=== PATIENT | female | born 1945 | race Caucasian/White ===

== ENCOUNTER → 2019-01-16 | Outpatient (CLI) | payer MEDICARE, OTHER | END | disposition home or self-care (01) | LOC: LAB SHORT 08:33 → PLD 08:33 | DX: D48.5 Neoplasm of uncertain behavior of skin (principal) | CPT/HCPCS: 88305 ==

== ENCOUNTER → 2019-02-06 | Outpatient (CLI) | payer MEDICARE, OTHER | END | disposition home or self-care (01) | LOC: LAB SHORT 09:55 → PLD 09:55 | DX: D48.5 Neoplasm of uncertain behavior of skin (principal) | CPT/HCPCS: 88305 ==

== ENCOUNTER 2020-12-19 10:39 | Observation (INO) | payer MEDICARE, OTHER ==
[~2020-12-19] VITALS: Ht 175.3 cm; Wt 52.6 kg
[2020-12-19] MEDS ORDERED: METOPROLOL SUCC25 MG PO (10:54)
[2020-12-19 11:29] LABS: BASOPHILS ABSOLUTE AUTO 0.01 K/mm3 (0.00-0.23); BASOPHILS PERCENT AUTO 0 % (0-2); EOSINOPHILS ABSOLUTE AUTO 0.04 K/mm3 (0.00-0.68); EOSINOPHILS PERCENT AUTO 1 % (0-6); Hematocrit 44.3 % (33.0-51.0); Hemoglobin 14.7 g/dL (11.5-16.0); IMMATURE GRAN ABSOLUTE AUTO 0.02 K/mm3 (0.00-0.10); IMMATURE GRAN PERCENT AUTO 0 % (0-1); LYMPHOCYTES PERCENT AUTO 9 % (21-46); MONOCYTES ABSOLUTE AUTO 0.38 K/mm3 (0.16-1.47); MONOCYTES PERCENT AUTO 6 % (4-13); Mean Corpuscular HGB 30.9 pg (26.0-34.0); Mean Corpuscular HGB Conc 33.2 g/dL (31.5-36.5); Mean Corpuscular Volume 93 fL (80-100); Mean Platelet Volume 9.8 fL (9.1-12.4); NEUTROPHILS ABSOLUTE AUTO 5.31 K/mm3 (1.96-9.15); NEUTROPHILS PERCENT AUTO 84 % (41-73); Platelet Count 197 K/mm3 (150-400); RDW Coefficient Variation 12.1 % (11.7-14.2); RDW Standard Deviation 41.4 fL (35.1-46.3); Red Blood Cell Count 4.76 M/mm3 (3.80-5.20); White Blood Cell Count 6.36 K/mm3 (4.00-11.30)
[2020-12-19 11:49] LABS: Alanine Aminotransfer (ALT/SGP 31 U/L (12-78); Albumin, Blood 3.7 g/dL (3.4-5.0); Albumin/Globulin Ratio 1.2 (0.8-1.8); Alk Phos 82 U/L (50-136); Anion Gap 5 mmol/L (6-16); Aspartate Aminotrans (AST/SGOT 26 U/L (12-37); Bilirubin, Total 1.4 mg/dL (0.1-1.0); Blood Urea Nitrogen 19 mg/dL (8-24); CO2, Blood 31 mmol/L (21-32); Calcium, Blood 9.1 mg/dL (8.5-10.1); Chloride, Blood 108 mmol/L (98-108); Creatinine, Blood 0.86 mg/dL (0.40-1.00); Globulin, Blood 3.2 g/dL (2.2-4.0); Glomerular Filtration Rate >60 (60-); Glucose, Blood 133 mg/dL (70-99); Potassium, Blood 3.9 mmol/L (3.5-5.5); Sodium, Blood 144 mmol/L (136-145); Total Protein, Blood 6.9 g/dL (6.4-8.2); Troponin I 0.099 ng/mL (0.000-0.040)
[2020-12-19 12:34] LABS: Source, Urine Clean Catch
[2020-12-19 13:02] LABS: Appearance, Urine Clear (Clear); Bilirubin, Urine Neg (Neg); Blood, Urine Neg (Neg); Color, Urine Yellow (P-Yellow); Glucose Qualitative, Urine Neg (Neg); Ketones, Urine Neg (Neg); Leukocyte Esterase, Urine Neg (Neg); Nitrite, Urine Neg (Neg); Protein, Urine 1+ (Neg); Urobilinogen, Urine NORM (Normal)
--- NOTE | 2020-12-19 16:29 | NUR ---
Patient admitted today by Dr Brooke. Dr Brooke on for the weekend. Cardiology consult ordered moniter troponins. No ETA for discharge at this time per Dr Brooke. cp
--- NOTE | 2020-12-19 17:04 | NUR ---
PT IS A 75YO/F WHO CAME HERE FOR HYPERTENSION WITH AN ELEVATED TROPONIN OF 0.099. PT DENIES CP OR CHEST DISCOMFORT. PT STATED SHE FEELS HER HEART PALPATE AT TIMES. PT ONLY TAKES METOPROLOL HOME MEDS. NO OTHER PAST MEDICAL HX BESIDES BACK SURGERY THAT CAUSED HER TO HAVE FOOT DROP ON LEFT LEG . PT STATED SHE TAKES HER HOME MEDS REGULARLY. DTR AT BEDSIDE. PT LIVES AT HOME AND DTR HELPS. PT USES HER BRACE TO GET AROUND; BUT WITHOUT THE BRACE SHE IS ONE PERSON ASSISTS TO THE BATHROOM. PT AOX4; CALLS APPROPRIATELY. TROPONIN LAB WORK WILL BE IN FOR TONIGHT. GEOLOGICAL ENGINEER CAME BY AND TALKED TO PT ABOUT THE UPCOMING ECHOCARDIOGRAM AND STRESS TEST FOR ONE DAY TOMORROW. PT WILL BE NPO PRIOR PROCEDURE AND NO CAFFEINE. PT EDUCATED AND VERBALIZED UNDERSTANDING. PT WANTED A COPY OF ADVANCE DIRECTIVES AND POLST TO BE DISCUSSED WITH DTR AT BEDSIDE. COPY GIVEN TO PT AND DR LOPEZ AT BEDSIDE. REORIENTED THE PT IN THE ROOM AND PT ON TELE- NSR @76. NO PAIN AT THIS TIME. BED IS IN THE LOWEST POSITION AND CALL LIGHT WITHIN REACH
--- NOTE | 2020-12-19 20:25 | NUR ---
ASSUMPTION OF CARE. AOX3, COOPERATIVE. REPORTS NO CHEST PAIN OR PALPITATIONS SINCE ARRIVAL. NO SOB, DIZZINESS, BENAVIDES, OR VISION CHANGES. VS WNL, BP GOOD. SHE STATES SHE IS DOING JUST FINE. BLE TO GET UP WITH OUT ANY SYMPTOMS. KNOWS SHE CAN NOT HAVE ANYTHING AFTER MN FOR STRESS TEST IN AM. CALL LIGHT IS IN REACH.
--- NOTE | 2020-12-20 05:26 | NUR ---
SHIFT SUMMARY: NANI HAD A GOOD NIGHT. VS HAVE REMAINED STABLE. AFEBRILE. INDEPENDENT IN THE ROOM. NO PAIN OR DISCOMFORT, NO CHEST PAIN. TELE REPORTS SINUS WITH PAC AND PVC. NPO AFTER MIDNIGHT. SLEPT WELL T/O THE NIGHT. STATES SHE FEELS NORMAL. NO OTHER CHANGES TO REPORT, CALL LIGHT IS IN REACH.
[2020-12-20 05:49] LABS: BASOPHILS ABSOLUTE AUTO 0.02 K/mm3 (0.00-0.23); BASOPHILS PERCENT AUTO 0 % (0-2); EOSINOPHILS ABSOLUTE AUTO 0.17 K/mm3 (0.00-0.68); EOSINOPHILS PERCENT AUTO 3 % (0-6); Hematocrit 40.6 % (33.0-51.0); Hemoglobin 13.2 g/dL (11.5-16.0); IMMATURE GRAN ABSOLUTE AUTO 0.01 K/mm3 (0.00-0.10); IMMATURE GRAN PERCENT AUTO 0 % (0-1); LYMPHOCYTES PERCENT AUTO 29 % (21-46); MONOCYTES ABSOLUTE AUTO 0.46 K/mm3 (0.16-1.47); MONOCYTES PERCENT AUTO 9 % (4-13); Mean Corpuscular HGB 30.4 pg (26.0-34.0); Mean Corpuscular HGB Conc 32.5 g/dL (31.5-36.5); Mean Corpuscular Volume 94 fL (80-100); Mean Platelet Volume 10.2 fL (9.1-12.4); NEUTROPHILS ABSOLUTE AUTO 3.03 K/mm3 (1.96-9.15); NEUTROPHILS PERCENT AUTO 58 % (41-73); Platelet Count 177 K/mm3 (150-400); RDW Coefficient Variation 12.4 % (11.7-14.2); RDW Standard Deviation 42.7 fL (35.1-46.3); Red Blood Cell Count 4.34 M/mm3 (3.80-5.20); White Blood Cell Count 5.19 K/mm3 (4.00-11.30)
[2020-12-20 06:12] LABS: Alanine Aminotransfer (ALT/SGP 26 U/L (12-78); Albumin, Blood 3.3 g/dL (3.4-5.0); Albumin/Globulin Ratio 1.2 (0.8-1.8); Alk Phos 68 U/L (50-136); Anion Gap 6 mmol/L (6-16); Aspartate Aminotrans (AST/SGOT 22 U/L (12-37); Bilirubin, Total 1.9 mg/dL (0.1-1.0); Blood Urea Nitrogen 23 mg/dL (8-24); Bun/Creatinine Ratio 27.5 (12.0-20.0); CO2, Blood 30 mmol/L (21-32); Chloride, Blood 110 mmol/L (98-108); Creatinine, Blood 0.84 mg/dL (0.40-1.00); Globulin, Blood 2.8 g/dL (2.2-4.0); Glomerular Filtration Rate >60 (60-); Glucose, Blood 83 mg/dL (70-99); Sodium, Blood 146 mmol/L (136-145); Total Protein, Blood 6.1 g/dL (6.4-8.2)
[2020-12-20] MEDS ORDERED: LISI5 PO (15:33)
[2020-12-20] MEDS ORDERED: Acetaminophen325 M1 PO (15:33)
--- NOTE | 2020-12-20 16:08 | NUR ---
DISCHARGE PT DISCHARGED AT 1600. PT COMPLETED STRESS TEST TODAY. EDUCATED ON NEW MEDS & FOLLOW UP APPOINTMENTS PRIOR TO DC. PT & DAUGHTER STATE THEY HAVE NO FURTHER QUESTIONS AT THIS TIME. PT ESCORTED OUT BY THIS RN. PT REFUSED WHEELCHAIR RIDE AND CHOSE TO AMBULATE OUT OF THE BUILDING. PT DENIES CP/SOB T/O SHIFT.
== END 2020-12-20 16:06 | disposition home or self-care (01) ==
LOC: ER 10:39 → MEDS 10:40 → ER 14:09 → MEDS 14:09
PROVIDERS: Emergency Medicine; ADMIT Internal Medicine
DX: R77.8 Other specified abnormalities of plasma proteins (principal); I10 Essential (primary) hypertension; R00.2 Palpitations; R55 Syncope and collapse; R94.39 Abnormal result of other cardiovascular function study; I08.3 Combined rheumatic disorders of mitral, aortic and tricuspid valves; I27.20 Pulmonary hypertension, unspecified; M19.042 Primary osteoarthritis, left hand; M19.041 Primary osteoarthritis, right hand; M21.372 Foot drop, left foot
CPT/HCPCS: 36415; 78452; 80053; 84484; 85025; 93005; 93010; 93017; 99284-25; A9270; A9500; G0378; J0280; J1650; J2785

== ENCOUNTER → 2021-01-13 | Outpatient (CLI) | payer MEDICARE, OTHER ==
[~2021-01-13] MED LIST: Acetaminophen325 M1 PO; LISI5 PO; METOPROLOL SUCC25 MG PO
[2021-01-16 18:06] LABS: DOPAMINE, URINE 119 ug/L (Undefined)
[2021-01-17 00:07] LABS: METANEPHRINE, UR 48 ug/L (Undefined)
== END | disposition home or self-care (01) ==
LOC: PLD 07:00 → LAB SHORT 07:00
PROVIDERS: Internal Medicine
DX: I10 Essential (primary) hypertension (principal)
CPT/HCPCS: 81050; 82384; 83835

== ENCOUNTER → 2023-11-07 | Outpatient (CLI) | payer MEDICARE, OTHER ==
[2023-11-08 11:32] LABS: Stool Occult Bld Immuno 1 Negative (NEGATIVE)
== END | disposition home or self-care (01) ==
LOC: LAB SHORT 09:30 → LAB 09:30
PROVIDERS: Internal Medicine
DX: Z12.11 Encounter for screening for malignant neoplasm of colon (principal)
CPT/HCPCS: 82274